=== PATIENT | male | born 1950 | race Caucasian/White ===

== ENCOUNTER 2017-08-28 11:46 | Observation (INO) | payer MEDICARE, OTHER ==
[2017-08-28] MEDS: SOD CHLORIDE 0.9% 1,000 ML IV (12:51)
[2017-08-28] MEDS: ONDANSETRON 4 MG INJ IV (12:52)
[2017-08-28] MEDS: morphine 4 MG/ML VIAL IV (12:52)
[2017-08-28] MEDS: NITROGLYCERIN 2% 1 GM OINT PKT TD (12:52)
[2017-08-28] MEDS ORDERED: NITROGLYCERIN (SL) 0.4 MG TAB SL ×2 (13:00→19:00)
[2017-08-28 13:23] LABS: ADD MAN DIFF? NO
[2017-08-28 13:25] LABS: WHITE BLOOD COUNT 6.4 10^3/ul (4.8-10.8)
[2017-08-28 13:25] LABS: BASOPHIL # 0.1 10^3/ul (0.0-0.1); BASOPHILS % 1.6 % (0.0-2.0); EOSINOPHILS # 0.2 10^3/ul (0.0-0.5); EOSINOPHILS % 2.7 % (0.0-7.0); HEMATOCRIT 41.5 % (42.0-52.0); HEMOGLOBIN 14.4 g/dl (14.0-18.0); LYMPHOCYTES # 2.4 10^3/ul (0.8-2.9); LYMPHOCYTES % 36.8 % (15.0-51.0); MEAN CORPUSCULAR HEMOGLOBIN 30.9 pg (29.0-33.0); MEAN CORPUSCULAR HGB CONC 34.7 g/dl (32.0-37.0); MEAN CORPUSCULAR VOLUME 89.1 fl (82.0-101.0); MEAN PLATELET VOLUME 12.4 fl (7.4-10.4); MONOCYTE # 0.6 10^3/ul (0.3-0.9); MONOCYTES % 8.6 % (0.0-11.0); NEUTROPHIL # 3.2 10^3/ul (1.6-7.5); NEUTROPHILS % 50.1 % (39.0-77.0); PLATELET COUNT 158 10^3/UL (140-415); RED BLOOD COUNT 4.66 10^6/ul (4.70-6.10); RED CELL DISTRIBUTION WIDTH 12.4 % (11.5-14.5)
[2017-08-28 13:46] LABS: ANION GAP 15 (8-16); BLOOD UREA NITROGEN 12 mg/dl (7-20); CALCIUM 9.8 mg/dl (8.4-10.2); CARBON DIOXIDE 27 mmol/L (21-31); CHLORIDE 103 mmol/L (97-110); CREATININE 0.79 mg/dl (0.61-1.24); GLUCOSE 96 mg/dl (70-220); SODIUM 141 mmol/L (135-144)
[2017-08-28 13:58] LABS: TROPONIN-I < 0.012 ng/ml (0.00-0.12)
[2017-08-28] MEDS ORDERED: ONDANSETRON 4 MG INJ IV (14:00)
[2017-08-28] MEDS ORDERED: ACETAMINOPHEN 325 MG TAB PO (14:00)
[2017-08-28] MEDS: SOD CHLORIDE 0.9% 100 ML (14:10)
[2017-08-28] MEDS: IOHEXOL 300MG/ML 150 ML BTL (14:10)
[2017-08-28] MEDS ORDERED: GLUCOSE GEL 15 GRAM TUBE PO ×2 (19:00)
[2017-08-28] MEDS ORDERED: GLUCAGON 1 MG INJ IM (19:00)
[2017-08-28] MEDS ORDERED: GLUCOSE GEL 15 GRAM TUBE BUCCAL (19:00)
[2017-08-28] MEDS ORDERED: DEXTROSE 50% 50 ML SYRINGE IV ×2 (19:00)
[2017-08-28] MEDS: HYDROCODONE/APAP (5/325) TAB PO (19:32)
[2017-08-28 19:41] LABS: CREATINE KINASE 75 IU/L (23-200)
[2017-08-28 19:53] LABS: CK INDEX 1.5
[2017-08-28 20:04] LABS: CK-MB 1.11 ng/ml (0.0-2.4); TROPONIN-I < 0.012 ng/ml (0.00-0.12)
[2017-08-28] MEDS: INSULIN GLARGINE [LANtus] 3 ML PEN SC (21:09)
[2017-08-28] MEDS: INSULIN ASPART [NOVOLOG] 3 ML PEN SC (21:10)
[2017-08-29] MEDS: ACCU-CHEK XX (01:48)
[2017-08-29 02:02] LABS: CK INDEX 1.5; CREATINE KINASE 60 IU/L (23-200)
[2017-08-29 02:06] LABS: CK-MB 0.91 ng/ml (0.0-2.4); TROPONIN-I < 0.012 ng/ml (0.00-0.12)
[2017-08-29 06:21] LABS: ADD MAN DIFF? NO
[2017-08-29 06:35] LABS: ABNORMAL IP MESSAGE 1; BASOPHIL # 0.1 10^3/ul (0.0-0.1); EOSINOPHILS # 0.2 10^3/ul (0.0-0.5); EOSINOPHILS % 4.3 % (0.0-7.0); HEMATOCRIT 38.2 % (42.0-52.0); HEMOGLOBIN 13.1 g/dl (14.0-18.0); LYMPHOCYTES # 2.2 10^3/ul (0.8-2.9); LYMPHOCYTES % 43.6 % (15.0-51.0); MEAN CORPUSCULAR HEMOGLOBIN 31.1 pg (29.0-33.0); MEAN CORPUSCULAR HGB CONC 34.3 g/dl (32.0-37.0); MEAN CORPUSCULAR VOLUME 90.7 fl (82.0-101.0); MEAN PLATELET VOLUME 13.1 fl (7.4-10.4); MONOCYTE # 0.5 10^3/ul (0.3-0.9); NEUTROPHIL # 2.1 10^3/ul (1.6-7.5); NEUTROPHILS % 40.9 % (39.0-77.0); PLATELET COUNT 149 10^3/UL (140-415); POSITIVE DIFF @See below; RED BLOOD COUNT 4.21 10^6/ul (4.70-6.10); RED CELL DISTRIBUTION WIDTH 12.6 % (11.5-14.5)
[2017-08-29 06:35] LABS: WHITE BLOOD COUNT 5.1 10^3/ul (4.8-10.8)
[2017-08-29 07:09] LABS: ANION GAP 14 (8-16); BLOOD UREA NITROGEN 12 mg/dl (7-20); CALCIUM 9.2 mg/dl (8.4-10.2); CARBON DIOXIDE 28 mmol/L (21-31); CHLORIDE 105 mmol/L (97-110); CREATININE 0.87 mg/dl (0.61-1.24); GLUCOSE 89 mg/dl (70-220); POTASSIUM 3.7 mmol/L (3.5-5.1); SODIUM 143 mmol/L (135-144)
[2017-08-29 07:21] LABS: CHOLESTEROL 157 mg/dl (100-200)
[2017-08-29 07:21] LABS: CHOL/HDL RATIO 6.5 RATIO; HDL CHOLESTEROL 24 mg/dl (30-78); LDL CHOLESTEROL,CALCULATED 51 mg/dl; TRIGLYCERIDES 412 mg/dl (0-149)
[2017-08-29] MEDS: INSULIN ASPART [NOVOLOG] 3 ML PEN SC ×4 (07:35→12:29)
[2017-08-29 07:44] LABS: HEMOGLOBIN A1C 7.5 % (0-5.9)
[2017-08-29] MEDS: metFORMIN 500 MG TAB PO (09:00)
[2017-08-29] MEDS: ASPIRIN 81 MG TAB PO (10:38)
[2017-08-29] MEDS: FENOFIBRATE 145 MG TAB PO (10:39)
[2017-08-29] MEDS ORDERED: INFLUENZA VIRUS VACCINE 0.5 ML SYG IM* (17:00)
== END 2017-08-29 16:30 | disposition left against medical advice (07) ==
LOC: E/R 11:46 → MS3 13:51
PROVIDERS: Internal Medicine
DX: R07.9 Chest pain, unspecified (principal); R94.31 Abnormal electrocardiogram [ECG] [EKG]; E78.5 Hyperlipidemia, unspecified; E11.9 Type 2 diabetes mellitus without complications
CPT/HCPCS: 36415; 71010; 71275; 80048; 80061; 82550; 82553; 82962; 83036; 84443; 84484; 85025; 93005; 93306; 96374; 96375; 99285-25

== ENCOUNTER 2017-09-02 13:50 | Observation (INO) | payer MEDICARE, OTHER ==
[2017-09-02 20:23] LABS: ADD MAN DIFF? NO
[2017-09-02 20:25] LABS: BASOPHIL # 0.1 10^3/ul (0.0-0.1); BASOPHILS % 1.6 % (0.0-2.0); EOSINOPHILS # 0.2 10^3/ul (0.0-0.5); EOSINOPHILS % 3.5 % (0.0-7.0); HEMATOCRIT 42.2 % (42.0-52.0); HEMOGLOBIN 14.8 g/dl (14.0-18.0); LYMPHOCYTES # 2.8 10^3/ul (0.8-2.9); LYMPHOCYTES % 44.1 % (15.0-51.0); MEAN CORPUSCULAR HGB CONC 35.1 g/dl (32.0-37.0); MEAN CORPUSCULAR VOLUME 88.5 fl (82.0-101.0); MONOCYTE # 0.6 10^3/ul (0.3-0.9); MONOCYTES % 9.8 % (0.0-11.0); NEUTROPHIL # 2.6 10^3/ul (1.6-7.5); NEUTROPHILS % 40.7 % (39.0-77.0); PLATELET COUNT 154 10^3/UL (140-415); RED BLOOD COUNT 4.77 10^6/ul (4.70-6.10); RED CELL DISTRIBUTION WIDTH 12.5 % (11.5-14.5)
[2017-09-02 20:25] LABS: WHITE BLOOD COUNT 6.3 10^3/ul (4.8-10.8)
[2017-09-02 20:39] LABS: ALANINE AMINOTRANSFERASE 42 IU/L (13-69); ALBUMIN 4.8 g/dl (3.3-4.9); ALBUMIN/GLOBULIN RATIO 1.54; ALKALINE PHOSPHATASE 85 IU/L (42-121); ANION GAP 18 (8-16); ASPARTATE AMINO TRANSFERASE 21 IU/L (15-46); BILIRUBIN,INDIRECT 0.5 mg/dl (0-1.1); BILIRUBIN,TOTAL 0.5 mg/dl (0.2-1.3); BLOOD UREA NITROGEN 11 mg/dl (7-20); CALCIUM 9.8 mg/dl (8.4-10.2); CARBON DIOXIDE 26 mmol/L (21-31); CHLORIDE 104 mmol/L (97-110); CREATININE 0.75 mg/dl (0.61-1.24); GLUCOSE 162 mg/dl (70-220); LIPASE 64 U/L (23-300); POTASSIUM 3.9 mmol/L (3.5-5.1); SODIUM 144 mmol/L (135-144); TOTAL PROTEIN 7.9 g/dl (6.1-8.1)
[2017-09-02] MEDS: ALPRAZOLAM 1 MG TAB PO (20:40)
[2017-09-02] MEDS: KETOROLAC 15 MG INJ IV (20:40)
[2017-09-02] MEDS: SOD CHLORIDE 0.9% 1,000 ML IV (20:40)
[2017-09-02 20:51] LABS: TROPONIN-I < 0.012 ng/ml (0.00-0.12)
[2017-09-02] MEDS ORDERED: morphine 2 MG INJ IV (22:30)
[2017-09-02] MEDS ORDERED: NACL 0.9% 3 ML SYG IV (22:30)
[2017-09-02] MEDS ORDERED: ONDANSETRON 4 MG INJ IV (22:30)
[2017-09-02 22:37] LABS: CREATINE KINASE 84 IU/L (23-200)
[2017-09-02 22:50] LABS: CK INDEX 0.9
[2017-09-02 22:54] LABS: CK-MB 0.79 ng/ml (0.0-2.4); TROPONIN-I < 0.012 ng/ml (0.00-0.12)
[2017-09-03] MEDS: ASPIRIN 81 MG TAB PO (08:32)
[2017-09-03] MEDS: FAMOTIDINE 20 MG INJ IV ×2 (08:32→21:44)
[2017-09-03] MEDS: ENOXAPARIN 30 MG/0.3 ML SYG SC (08:37)
[2017-09-03 08:38] LABS: ADD MAN DIFF? NO
[2017-09-03 08:39] LABS: WHITE BLOOD COUNT 4.4 10^3/ul (4.8-10.8)
[2017-09-03 08:39] LABS: BASOPHIL # 0.1 10^3/ul (0.0-0.1); BASOPHILS % 2.3 % (0.0-2.0); EOSINOPHILS # 0.2 10^3/ul (0.0-0.5); EOSINOPHILS % 5.2 % (0.0-7.0); HEMATOCRIT 39.5 % (42.0-52.0); HEMOGLOBIN 13.5 g/dl (14.0-18.0); LYMPHOCYTES # 1.9 10^3/ul (0.8-2.9); LYMPHOCYTES % 42.3 % (15.0-51.0); MEAN CORPUSCULAR HEMOGLOBIN 30.8 pg (29.0-33.0); MEAN CORPUSCULAR HGB CONC 34.2 g/dl (32.0-37.0); MEAN PLATELET VOLUME 12.9 fl (7.4-10.4); MONOCYTE # 0.5 10^3/ul (0.3-0.9); MONOCYTES % 10.4 % (0.0-11.0); NEUTROPHIL # 1.8 10^3/ul (1.6-7.5); NEUTROPHILS % 39.8 % (39.0-77.0); PLATELET COUNT 131 10^3/UL (140-415); RED BLOOD COUNT 4.39 10^6/ul (4.70-6.10); RED CELL DISTRIBUTION WIDTH 12.4 % (11.5-14.5)
[2017-09-03 08:59] LABS: CREATINE KINASE 69 IU/L (23-200)
[2017-09-03 09:03] LABS: ALANINE AMINOTRANSFERASE 36 IU/L (13-69); ALBUMIN 3.8 g/dl (3.3-4.9); ALBUMIN/GLOBULIN RATIO 1.35; ALKALINE PHOSPHATASE 73 IU/L (42-121); ANION GAP 15 (8-16); ASPARTATE AMINO TRANSFERASE 21 IU/L (15-46); BILIRUBIN,INDIRECT 0.8 mg/dl (0-1.1); BILIRUBIN,TOTAL 0.8 mg/dl (0.2-1.3); BLOOD UREA NITROGEN 12 mg/dl (7-20); CALCIUM 9.8 mg/dl (8.4-10.2); CARBON DIOXIDE 28 mmol/L (21-31); CHLORIDE 104 mmol/L (97-110); CHOL/HDL RATIO 5.8 RATIO; CHOLESTEROL 147 mg/dl (100-200); CREATININE 0.79 mg/dl (0.61-1.24); GLUCOSE 139 mg/dl (70-220); HDL CHOLESTEROL 25 mg/dl (30-78); LDL CHOLESTEROL,CALCULATED 54 mg/dl; POTASSIUM 4.2 mmol/L (3.5-5.1); SODIUM 143 mmol/L (135-144); TOTAL PROTEIN 6.6 g/dl (6.1-8.1); TRIGLYCERIDES 339 mg/dl (0-149)
[2017-09-03 09:12] LABS: CK INDEX 1.1
[2017-09-03 09:36] LABS: CK-MB 0.76 ng/ml (0.0-2.4)
[2017-09-03] MEDS ORDERED: GLUCOSE GEL 15 GRAM TUBE BUCCAL (13:00)
[2017-09-03] MEDS ORDERED: GLUCAGON 1 MG INJ IM (13:00)
[2017-09-03] MEDS ORDERED: DEXTROSE 50% 50 ML SYRINGE IV ×2 (13:00)
[2017-09-03] MEDS ORDERED: GLUCOSE GEL 15 GRAM TUBE PO ×2 (13:00)
[2017-09-03 15:33] LABS: TROPONIN-I < 0.012 ng/ml (0.00-0.12)
[2017-09-03 16:15] LABS: CREATINE KINASE 61 IU/L (23-200)
[2017-09-03 16:36] LABS: CK-MB 0.61 ng/ml (0.0-2.4); TROPONIN-I < 0.012 ng/ml (0.00-0.12)
[2017-09-03] MEDS: INSULIN ASPART [NOVOLOG] 3 ML PEN SC ×3 (17:41→21:48)
[2017-09-03] MEDS: BENAZEPRIL 10 MG TAB PO (21:44)
[2017-09-03] MEDS: INSULIN GLARGINE [LANtus] 3 ML PEN SC (21:49)
[2017-09-04] MEDS: ACCU-CHEK XX (01:30)
[2017-09-04] MEDS: INSULIN ASPART [NOVOLOG] 3 ML PEN SC ×7 (08:00→20:30)
[2017-09-04] MEDS: ASPIRIN 81 MG TAB PO (08:50)
[2017-09-04] MEDS: FAMOTIDINE 20 MG INJ IV ×2 (08:50→20:19)
[2017-09-04] MEDS: BENAZEPRIL 10 MG TAB PO ×2 (08:50→20:20)
[2017-09-04] MEDS: ENOXAPARIN 30 MG/0.3 ML SYG SC (09:02)
[2017-09-04 09:03] LABS: ADD MAN DIFF? NO
[2017-09-04 09:05] LABS: BASOPHIL # 0.1 10^3/ul (0.0-0.1); BASOPHILS % 1.4 % (0.0-2.0); EOSINOPHILS # 0.2 10^3/ul (0.0-0.5); EOSINOPHILS % 4.7 % (0.0-7.0); HEMATOCRIT 40.6 % (42.0-52.0); HEMOGLOBIN 14.1 g/dl (14.0-18.0); LYMPHOCYTES # 1.8 10^3/ul (0.8-2.9); LYMPHOCYTES % 34.4 % (15.0-51.0); MEAN CORPUSCULAR HEMOGLOBIN 31.1 pg (29.0-33.0); MEAN CORPUSCULAR HGB CONC 34.7 g/dl (32.0-37.0); MEAN CORPUSCULAR VOLUME 89.4 fl (82.0-101.0); MEAN PLATELET VOLUME 12.9 fl (7.4-10.4); MONOCYTE # 0.5 10^3/ul (0.3-0.9); MONOCYTES % 9.5 % (0.0-11.0); NEUTROPHIL # 2.6 10^3/ul (1.6-7.5); NEUTROPHILS % 49.8 % (39.0-77.0); PLATELET COUNT 131 10^3/UL (140-415); RED BLOOD COUNT 4.54 10^6/ul (4.70-6.10); RED CELL DISTRIBUTION WIDTH 12.6 % (11.5-14.5)
[2017-09-04 09:05] LABS: WHITE BLOOD COUNT 5.1 10^3/ul (4.8-10.8)
[2017-09-04 09:28] LABS: ALANINE AMINOTRANSFERASE 39 IU/L (13-69); ALBUMIN 4.2 g/dl (3.3-4.9); ALKALINE PHOSPHATASE 74 IU/L (42-121); ANION GAP 17 (8-16); ASPARTATE AMINO TRANSFERASE 22 IU/L (15-46); BILIRUBIN,INDIRECT 0.7 mg/dl (0-1.1); BILIRUBIN,TOTAL 0.7 mg/dl (0.2-1.3); BLOOD UREA NITROGEN 12 mg/dl (7-20); CALCIUM 9.4 mg/dl (8.4-10.2); CARBON DIOXIDE 28 mmol/L (21-31); CHLORIDE 104 mmol/L (97-110); CREATININE 0.83 mg/dl (0.61-1.24); GLUCOSE 121 mg/dl (70-220); POTASSIUM 4.6 mmol/L (3.5-5.1); SODIUM 144 mmol/L (135-144)
[2017-09-04] MEDS: REGADENOSON 0.4 MG/5 ML SYG (11:55)
[2017-09-04] MEDS: ATORVASTATIN 40 MG TAB PO (20:19)
[2017-09-04] MEDS: INSULIN GLARGINE [LANtus] 3 ML PEN SC (20:22)
[2017-09-05] MEDS: ACCU-CHEK XX (01:32)
[2017-09-05] MEDS: INSULIN ASPART [NOVOLOG] 3 ML PEN SC ×6 (08:00→17:14)
[2017-09-05] MEDS: ASPIRIN 81 MG TAB PO (08:35)
[2017-09-05] MEDS: FAMOTIDINE 20 MG INJ IV (08:35)
[2017-09-05] MEDS: BENAZEPRIL 10 MG TAB PO (08:36)
[2017-09-05] MEDS: ENOXAPARIN 30 MG/0.3 ML SYG SC (08:36)
[2017-09-05 15:52] LABS: ADD MAN DIFF? NO
[2017-09-05 15:53] LABS: WHITE BLOOD COUNT 5.8 10^3/ul (4.8-10.8)
[2017-09-05 15:53] LABS: BASOPHIL # 0.1 10^3/ul (0.0-0.1); BASOPHILS % 1.5 % (0.0-2.0); EOSINOPHILS # 0.2 10^3/ul (0.0-0.5); EOSINOPHILS % 3.6 % (0.0-7.0); HEMATOCRIT 41.5 % (42.0-52.0); HEMOGLOBIN 14.3 g/dl (14.0-18.0); LYMPHOCYTES # 2.5 10^3/ul (0.8-2.9); LYMPHOCYTES % 42.5 % (15.0-51.0); MEAN CORPUSCULAR HEMOGLOBIN 31.3 pg (29.0-33.0); MEAN CORPUSCULAR HGB CONC 34.5 g/dl (32.0-37.0); MEAN CORPUSCULAR VOLUME 90.8 fl (82.0-101.0); MEAN PLATELET VOLUME 12.6 fl (7.4-10.4); MONOCYTE # 0.6 10^3/ul (0.3-0.9); MONOCYTES % 10.1 % (0.0-11.0); NEUTROPHIL # 2.5 10^3/ul (1.6-7.5); NEUTROPHILS % 42.1 % (39.0-77.0); PLATELET COUNT 157 10^3/UL (140-415); RED BLOOD COUNT 4.57 10^6/ul (4.70-6.10); RED CELL DISTRIBUTION WIDTH 12.5 % (11.5-14.5)
[2017-09-05 16:13] LABS: ANION GAP 15 (8-16); BLOOD UREA NITROGEN 16 mg/dl (7-20); CARBON DIOXIDE 29 mmol/L (21-31); CHLORIDE 102 mmol/L (97-110); CREATININE 0.88 mg/dl (0.61-1.24); GLUCOSE 129 mg/dl (70-220); POTASSIUM 4.4 mmol/L (3.5-5.1); SODIUM 142 mmol/L (135-144)
[2017-09-05] MEDS: ACETAMINOPHEN 325 MG TAB PO (18:13)
[2017-09-06] MEDS ORDERED: LINAGLIPTIN 5 MG TABLET PO (09:00)
== END 2017-09-05 18:24 | disposition home or self-care (01) ==
LOC: MS4 22:14 → E/R 13:50
DX: R07.9 Chest pain, unspecified (principal); E78.5 Hyperlipidemia, unspecified; Z79.82 Long term (current) use of aspirin; E11.9 Type 2 diabetes mellitus without complications; Z79.4 Long term (current) use of insulin; M79.605 Pain in left leg; M79.604 Pain in right leg
CPT/HCPCS: 36415; 71045; 78452; 80048; 80053; 80061; 82550; 82553; 82962; 83690; 84484; 85025; 87081; 93005; 93017; 93970; 96374; 99285-25; G0378

== ENCOUNTER 2017-09-24 07:52 | Emergency (ER) | payer MEDICARE ==
[2017-09-24] MEDS: IBUPROFEN 200 MG TAB PO (09:59)
[2017-09-24] MEDS: ACETAMINOPHEN 500 MG TAB PO (09:59)
== END 2017-09-24 11:31 | disposition home or self-care (01) ==
LOC: FTE 07:52
DX: S50.02XA Contusion of left elbow, initial encounter (principal); S49.92XA Unspecified injury of left shoulder and upper arm, initial encounter; F17.210 Nicotine dependence, cigarettes, uncomplicated; E11.9 Type 2 diabetes mellitus without complications; W01.0XXA Fall on same level from slipping, tripping and stumbling without subsequent striking against object, initial encounter; Y92.512 Supermarket, store or market as the place of occurrence of the external cause; Z79.4 Long term (current) use of insulin
CPT/HCPCS: 73030; 73080-LT; 99284-25